=== PATIENT | male | born 2000 | race Caucasian/White ===

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

== ENCOUNTER 2018-11-08 10:55 | Emergency (ER) | payer OTHER ==
[~2018-11-08] VITALS: Wt 89.0 kg
[~2018-11-08 10:55] MED LIST changes: +IBUP-1542 PO
[2018-11-08 10:58] VITALS: BP 123/69; PULSE 69; RESP 18
[2018-11-08] MEDS ORDERED: SULF1TAB31 PO (11:31)
[2018-11-08] MEDS ORDERED: CEPH-443 PO (11:31)
--- NOTE | 2018-11-08 11:40 | ERD ---
ER Documentation Chief Complaint Chief Complaint left upper arm possible insect bite/abcess? HPI This is a 18-year-old male who presents with an area of swelling to his left upper arm after an insect bite. Patient states swelling has been progressively increasing in size over the past 3 days. He states he has been picking at it with no amount of discharge. He denies any fevers. Denies any numbness or tingling of his upper arm. Denies any other trauma. No history of IV drug use. ROS All systems reviewed and are negative except as per history of present illness. Medications Home Meds Active Scripts Cephalexin* (Keflex*) 500 Mg Capsule, 500 MG PO QID for 5 Days, CAP Prov:DISHIGRIKIAN,ZEPYUR N PA-C 11/08/18 Sulfamethoxazole/Trimethoprim* (Bactrim Ds* Tablet) 1 Each Tablet, 1 TAB PO BID, #14 TAB Prov:DISHIGRIKIAN,ZEPYUR N PA-C 11/08/18 Ibuprofen* (Motrin*) 600 Mg Tab, 600 MG PO Q8 for PAIN, #30 TAB Prov:MELA DIALLO MD 06/15/16 Reported Medications [No Medications] No Conflict Check 07/16/09 Allergies Allergies: Coded Allergies: No Known Allergies (Verified Allergy, Mild, 07/16/09) PMhx/Soc Medical and Surgical Hx: pt denies Medical Hx, pt denies Surgical Hx History of Surgery: No (Cholecystectomy) Anesthesia Reaction: No Hx Neurological Disorder: No Hx Respiratory Disorders: No Hx Cardiac Disorders: No Hx Psychiatric Problems: No Hx Miscellaneous Medical Probl: No Hx Alcohol Use: No Hx Substance Use: Yes (THC) Hx Tobacco Use: No Physical Exam Vitals Vital Signs Date Temp Pulse Resp B/P (MAP) Pulse Ox O2 O2 Flow FiO2 Time Delivery Rate 11/08/18 98.1 69 18 123/69 99 10:58 (87) Physical Exam Const: No acute distress Head: Atraumatic Eyes: Normal Conjunctiva ENT: Normal External Ears, Nose and Mouth. Skin: + Left upper arm approximately 1.5 cm indurated nodule, with surrounding erythema and warmth. No fluctuance. Ext: No cyanosis, or edema. Distal pulses intact. Good cap refill. Station and motor grossly intact. Neur: Awake and alert Psych: Normal Mood and Affect Procedures/MDM MEDICAL DECISION MAKING: This is a 18-year-old male who presents with an abscess and surrounding cellulitis to his left upper arm status post insect bite. There is no clear area of fluctuance therefore I&D was not attempted. Will treat with oral antibiotics, and have patient return in 48 hours for wound recheck. Area of cellulitis was outlined w/ marker prior to discharge. He has no fever here, vital signs are normal. He has no evidence of sepsis or deep space tissue infection. Patient can be treated as outpatient with a trial of oral antibiotics. Strict return precautions were discussed. PRESCRIPTIONS: Bactrim, Keflex SPECIALIST FOLLOW UP RECOMMENDED: None Patient has been advised to follow up with primary care in 1-2 days. Departure Diagnosis: Primary Impression: Cellulitis of upper arm Additional Impression: Abscess Condition: Stable Patient Instructions: Cellulitis, Abscess, Antiobiotic Treatment Only Referrals: COMMUNITY CLINICS YOU HAVE RECEIVED A MEDICAL SCREENING EXAM AND THE RESULTS INDICATE THAT YOU DO NOT HAVE A CONDITION THAT REQUIRES URGENT TREATMENT IN THE EMERGENCY DEPARTMENT. FURTHER EVALUATION AND TREATMENT OF YOUR CONDITION CAN WAIT UNTIL YOU ARE SEEN IN YOUR DOCTORS OFFICE WITHIN THE NEXT 1-2 DAYS. IT IS YOUR RESPONSIBILITY TO MAKE AN APPOINTMENT FOR FOLOW-UP CARE. IF YOU HAVE A PRIMARY DOCTOR --you should call your primary doctor and schedule an appointment IF YOU DO NOT HAVE A PRIMARY DOCTOR YOU CAN CALL OUR PHYSICIAN REFERRAL HOTLINE AT IF YOU CAN NOT AFFORD TO SEE A PHYSICIAN YOU CAN CHOSE FROM THE FOLLOWING [facility] [address] [facility]. [facility] [address] [facility] [facility] [address] [facility] [facility] [address] [facility] [facility] [address] [facility]. [facility]. [address] [facility]. [facility] YOU HAVE RECEIVED A MEDICAL SCREENING EXAM AND THE RESULTS INDICATE THAT YOU DO NOT HAVE A CONDITION THAT REQUIRES URGENT TREATMENT IN THE EMERGENCY DEPARTMENT. FURTHER EVALUATION AND TREATMENT OF YOUR CONDITION CAN WAIT UNTIL YOU ARE SEEN IN YOUR DOCTORS OFFICE WITHIN THE NEXT 1-2 DAYS. IT IS YOUR RESPONSIBILITY TO MAKE AN APPOINTMENT FOR FOLOW-UP CARE. IF YOU HAVE A PRIMARY DOCTOR --you should call your primary doctor and schedule and appointment IF YOU DO NOT HAVE A PRIMARY DOCTOR YOU CAN CALL OUR PHYSICIAN REFERRAL HOTLINE AT . IF YOU CAN NOT AFFORD TO SEE A PHYSICIAN YOU CAN CHOSE FROM THE FOLLOWING [facility] INSTITUTIONS[facility] [address] [place] [address] [facility] [address] [place] [address] [facility] + [facility] [address] [place] [address] Additional Instructions: Come back in 48 hours for wound recheck. You must take the entire course of antibiotics. Come back sooner for any fevers, increasing redness, swelling or pain. Do not take your abscess. NEGRA GALLEGOS PA-C Nov 08, 2018 11:40
== END 2018-11-08 11:53 | disposition home or self-care (01) ==
LOC: FTE 10:55
DX: L03.114 Cellulitis of left upper limb (principal); L02.414 Cutaneous abscess of left upper limb
CPT/HCPCS: 99283